=== PATIENT | male | born 1965 | race African-American/Black ===

== ENCOUNTER 2025-09-10 12:24 | Emergency (ER) | payer BC | END 2025-09-10 13:45 | disposition home or self-care (01) | LOC: CSHERS 12:24 | DX: J02.9 Acute pharyngitis, unspecified (principal); R52 Pain, unspecified; R09.81 Nasal congestion; R05.9 Cough, unspecified; I10 Essential (primary) hypertension | CPT/HCPCS: 87428; 99283 ==